=== PATIENT | male | born 1985 | race Caucasian/White ===

== ENCOUNTER 2016-06-29 16:21 | Emergency (ER) | payer BC ==
[~2016-06-29] VITALS: Ht 152.4 cm; Wt 81.0 kg
[~2016-06-29 16:21] MED LIST: HYDR-580 PO
[2016-06-29 16:29] VITALS: Ht 152.4 cm; Wt 81.0 kg
[2016-06-29] MEDS ORDERED: FAMO-18 PO (16:53)
[2016-06-29] MEDS ORDERED: PANT40TA3 PO (16:56)
--- NOTE | 2016-06-29 17:03 | ERD ---
ER Documentation Chief Complaint Date/Time DATE: 06/29/16 TIME: 16:58 Chief Complaint SORE THROAT X 1 WEEK HPI This is a 31-year-old male complaining of esophageal pain 1 week that is aggravated after eating or lying down. Patient takes Mylanta for symptom relief. Patient denies any recent history of fever, nausea, vomiting, abdominal pain, shortness of breath, chest pain, constipation or diarrhea. Medical and surgical history are unremarkable. Patient also states having occasional cough. ROS All systems reviewed and are negative except as per history of present illness. Medications Home Meds Active Scripts Pantoprazole* (Protonix*) 40 Mg Tablet.dr, 40 MG PO DAILY for 14 Days, #14 TAB Prov:RYDER FAIR 06/29/16 Hydrocodone Bit-Acetaminophen ([place]) 7.5-325 Mg Tablet, 1 TAB PO Q6 Y for PAIN , #10 TAB Prov:ZAIN LIVINGSTON MD 10/09/15 Discontinued Scripts Famotidine* (Pepcid*) 20 Mg Tablet, 20 MG PO BID for 4 Days, TAB Prov:RYDER FAIR 06/29/16 Allergies Allergies: Coded Allergies: No Known Allergy (Unverified , 10/09/15) PMhx/Soc Medical and Surgical Hx: pt denies Medical Hx, pt denies Surgical Hx Hx Alcohol Use: No Hx Substance Use: No Hx Tobacco Use: No Physical Exam Vitals Vital Signs Date Time Temp Pulse Resp B/P Pulse Ox O2 Delivery O2 Flow Rate FiO2 06/29/16 16:29 98.1 84 18 112/71 99 Physical Exam Physical Exam CONST: Well-developed, well-nourished, in no acute distress. Nontoxic in appearance. HEENT: Atraumatic. Normal conjunctiva. EOM intact. TM intact. External ear is normal. Clear oropharnyx without erythema. No uvular deviation. Moist mucous membranes. Supple neck. No meningismus. No submandibular induration. RESP: Clear to auscultation bilaterally. No wheezing. CARDIO: Regular rate and rhythm, no murmurs. ABD: Soft, non tender, non distended. Normal bowel sounds. No McBurney's point tenderness. No guarding or rigidity. No peritoneal signs. SKIN: No petechiae or rashes. BACK: No midline or flank tenderness. EXT: No cyanosis or edema. Distal pulses equal and bilateral. NEURO: Awake and alert, appropriate for age. Procedures/MDM EMERGENCY DEPARTMENT COURSE/MEDICAL DECISION MAKING This is a 31-year-old male who comes to the emergency room secondary to complaints of esophageal pain 1 week that is aggravated after eating or lying down. Abdominal exam is unremarkable. My primary diagnosis is acid reflux. Secondary diagnosis is esophageal pain. Differential diagnoses considered but not limited to acute appendicitis, diverticulitis, pancreatitis, cholecystitis, gastritis, pyelonephritis, UTI, constipation, inflammatory bowel disease.. Pt is hemodynamically stable upon reassessment. The patient was discharged for outpatient management with a prescription for Protonix 2 weeks. The patient was advised to followup with their PMD in 1-2 days and to return to the Emergency Department if there are any new or worsening symptoms. The patient understood and agreed with the diagnosis, treatment and plan. Patient is stable for discharge at this time. Departure Diagnosis: Primary Impression: Acid reflux Esophagitis presence: without esophagitis Qualified Code: K21.9 - Gastroesophageal reflux disease without esophagitis Additional Impression: Esophageal pain Condition: Stable Patient Instructions: What Is Acid Reflux? [facility] Usted se ott hecho un examen mdico de control que le indica que no est en edgar condicin que requiera tratamiento urgente en el Departamento de Emergencia. Un estudio ms profundo y el tratamiento de ragland condicin pueden esperar sin ningn riesgo hasta que usted sea atendida/o en el consultorio de ragland mdico o edgar cl francis. Es responsabilidad suya arreglar edgar danyell para el seguimiento del lani. MANEJO DE CONDICIONES NO URGENTES EN EL FUTURO 1) Si usted tiene un mdico de atencin primaria: Usted debera llamar a ragland mdico de atencin primaria antes de venir al departamento de emergencia. Despus de las horas de consultorio, ragland doctor o ragland asociado/a est disponible por telfono. El mdico o enfermero de anita en el servicio telefnico puede asesorarle por omar medio para atender el problema, o lani contrario se puede programar edgar danyell. 2) Si usted no tiene un mdico de atencin primaria: Llame al mdico o clnica de referencia que aparece abajo karla las horas de consultorio para hacer edgar danyell para que le vean. CLINICAS: [facility] [phone] [facility] [phone] [facility] [phone] [facility] [phone] [place] [address] [phone] [facility] [phone] [address] [facility]. [facility] () Usted se ott hecho un examen mdico de control que le indica que no est en edgar condicin que requiera tratamiento urgente en el Departamento de Emergencia. Un estudio ms profundo y el tratamiento de ragland condicin pueden esperar sin ningn riesgo hasta que usted sea atendida/o en el consultorio de ragland mdico o edgar cl francis. Es responsabilidad suya arreglar edgar danyell para el seguimiento del lani. MANEJO DE CONDICIONES NO URGENTES EN EL FUTURO 1) Si usted tiene un mdico de atencin primaria: Usted debera llamar a ragland mdico de atencin primaria antes de venir al departamento de emergencia. Despus de las horas de consultorio, ragland doctor o ragland asociado/a est disponible por telfono. El mdico o enfermero de anita en el servicio telefnico puede asesorarle por omar medio para atender el problema, o lani contrario se puede programar edgar danyell. 2) Si usted no tiene un mdico de atencin primaria: Llame al mdico o condado institucions de referencia que aparece abajo karla las horas de consultorio para hacer edgar danyell para que le vean. SI USTED NO PUEDE PAGAR PARA ERNESTO UN MEDICO puede ir a: [facility] [address] [place] [address] [facility] [address] [place] [address] [facility] [address] [place] [address] [facility] [address] [place], [place] [id number] Additional Instructions: Llame a ragland mdico de atencin primaria maana para hacer edgar danyell karla los pr ximos stafford 1-2. Volver al Departamento de la emergencia inmediatamente si tiene cualquier s ntoma nuevo o que empeora. Caputa todos los medicamentos laurie lo indique. RYDER FAIR Jun 29, 2016 17:03
== END 2016-06-29 17:00 | disposition home or self-care (01) ==
LOC: FTE 16:21
DX: K21.9 Gastro-esophageal reflux disease without esophagitis (principal); K22.8 Other specified diseases of esophagus
CPT/HCPCS: 99283

== ENCOUNTER 2016-12-01 20:53 | Emergency (ER) | payer BC ==
[~2016-12-01] VITALS: Ht 182.9 cm; Wt 104.5 kg
[~2016-12-01 20:53] MED LIST changes: +PANT40TA3 PO
[2016-12-01 20:57] VITALS: Ht 182.9 cm; Wt 104.5 kg
--- NOTE | 2016-12-01 21:54 | ERD ---
ER Documentation Chief Complaint Date/Time DATE: 12/01/16 TIME: 21:52 Chief Complaint palpitations shaking of hands HPI 31-year-old male presents in emergency department for episode of palpitations and shaking after eating. Patient had 2 episodes of this, one yesterday and today. At this time, patient does not have any symptoms. Patient does not have any chest pain. Patient does not have any shortness of breath. Patient does not have any dizziness. Patient does not have any dyspnea on exertion or dyspnea on lying him. Patient denies any chest pain or palpitations at this time. Patient denies any symptoms at this time. ROS All systems reviewed and are negative except as per history of present illness. Medications Home Meds Active Scripts Magaldrate/Simethicone* (Mylanta*) 355 Ml Susp, 30 ML PO QID Y for GASTROINTESTINAL UPSET, #1 BOTTLE Prov:BRAD WRIGHT NP 12/01/16 Omeprazole* (Omeprazole*) 20 Mg Capsule., 20 MG PO DAILY, #30 Prov:BRAD WRIGHT NP 12/01/16 Pantoprazole* (Protonix*) 40 Mg Tablet.dr, 40 MG PO DAILY for 14 Days, #14 TAB Prov:RYDER FAIR 06/29/16 Hydrocodone Bit-Acetaminophen ([place]) 7.5-325 Mg Tablet, 1 TAB PO Q6 Y for PAIN , #10 TAB Prov:ZAIN LIVINGSTON MD 10/09/15 Allergies Allergies: Coded Allergies: No Known Allergy (Unverified , 12/01/16) PMhx/Soc Medical and Surgical Hx: pt denies Medical Hx, pt denies Surgical Hx History of Surgery: No Anesthesia Reaction: No Hx Neurological Disorder: No Hx Respiratory Disorders: No Hx Cardiac Disorders: No Hx Psychiatric Problems: No Hx Miscellaneous Medical Probl: No Hx Alcohol Use: No Hx Substance Use: No Hx Tobacco Use: No Smoking Status: Never smoker FmHx Family History: No coronary disease, No diabetes, No other Physical Exam Vitals Vital Signs Date Time Temp Pulse Resp B/P Pulse Ox O2 Delivery O2 Flow Rate FiO2 12/01/16 20:57 98.2 89 20 144/89 99 Physical Exam GENERAL: The patient is well developed and appropriate for usual state of health, in no apparent distress. CHEST: Clear to auscultation bilaterally. There are no rales, wheezes or rhonchi. HEART: Regular rate and rhythm. No murmurs, clicks, rubs or gallops. No S3 or S4. ABDOMEN: Soft, nontender and nondistended. Good bowel sounds. No rebound or guarding. No gross peritonitis. No gross organomegaly or masses. No Harvey sign or McBurney point tenderness. BACK: No midline or flank tenderness. EXTREMITIES: Equal pulses bilaterally. There is no peripheral clubbing, cyanosis or edema. No focal swelling or erythema. Full range of motion. Grossly neurovascularly intact. NEURO: Alert and oriented. Cranial nerves 2-12 intact. Motor strength in all 4 extremities with 5/5 strength. Sensation grossly intact. Normal speech and gait. SKIN: There is no apparent rash or petechia. The skin is warm and dry. HEMATOLOGIC AND LYMPHATIC: There is no evidence of excessive bruising or lymphedema. No gross cervical, axillary, or inguinal lymphadenopathy. Results 24 hrs EKG was done, read by me and is normal sinus rhythm at a rate of 74 normal axis , there is no ST changes or changes in the EKG that indicates any cardiac emergencies at this time. Patient's EKG was also reviewed by Dr. Pascal. Impression: no acute findings on EKG Procedures/MDM Medical Decision Making: Patient's symptoms is likely consistent with acid reflux disease causing palpitations and anxiety at times. At this time, patient does not have any complaints. Patient does not have any chest pain.There is low suspicion for cardiopulmonary emergencies at this time. Patient has low risk factors. EKG is normal, there is no changes in the EKG that indicates cardiac emergencies. Chest X-ray does not show cardiopulmonary emergencies at this time. There is low suspicion for aortic aneurysm, myocardial infarction, pneumothorax, pleural effusion, pulmonary embolism, or any other cardiopulmonary emergencies at this time. prescription was given for mylanta, Omeprazole Dispostion: Home. Stable Departure Diagnosis: Primary Impression: Acid reflux Esophagitis presence: without esophagitis Qualified Code: K21.9 - Gastroesophageal reflux disease without esophagitis Additional Impression: Palpitations Condition: Stable Patient Instructions: Gerd (Adult), Palpitations BRAD WRIGHT NP Dec 01, 2016 21:54
[2016-12-01] MEDS ORDERED: OMEP20CA16 PO (21:55)
[2016-12-01] MEDS ORDERED: MAG-19 PO (21:55)
== END 2016-12-01 22:15 | disposition home or self-care (01) ==
LOC: FTE 20:53
DX: K21.9 Gastro-esophageal reflux disease without esophagitis (principal)
CPT/HCPCS: 93005

== ENCOUNTER 2018-03-10 22:12 | Emergency (ER) | END 2018-03-11 02:09 | disposition home or self-care (01) ==